=== PATIENT | male | born 1995 | race African-American/Black ===

== ENCOUNTER 2023-08-26 17:46 | Emergency (ER) | payer BC, OTHER ==
[2023-08-26] MEDS ORDERED: Ketorolac Tromethamine 30 MG/ML VIAL ONE (19:42)
[2023-08-26] MEDS ORDERED: Bacitracin 1 PK ONE (19:42)
== END 2023-08-26 19:55 | disposition home or self-care (01) ==
LOC: ERS 17:46
DX: T22.10XA Burn of first degree of shoulder and upper limb, except wrist and hand, unspecified site, initial encounter (principal); S09.90XA Unspecified injury of head, initial encounter; F17.290 Nicotine dependence, other tobacco product, uncomplicated; V49.50XA Passenger injured in collision with unspecified motor vehicles in traffic accident, initial encounter
CPT/HCPCS: 70450; 71045; 72125; 96374; G0390; J1885